=== PATIENT | male | born 1995 | race African-American/Black ===

== ENCOUNTER 2022-01-29 15:20 | Emergency (ER) | payer OTHER ==
--- NOTE | 2022-01-29 17:04 | ED Physician Documentation ---
History of Present Illness - Stated complaint Stated Complaint: MALE - Chief complaint Chief Complaint: UTI - History obtained from History obtained from: Patient - Additonal information Additional information: This is a generally healthy 26-year-old male who presents due to concerns that may have a sexually transmitted infection. The has urinary tract infection symptoms and thus he wants to be tested for sexually transmitted infection. The patient has no symptoms and denies any concerning contact. Review of Systems Ten Systems: 10 systems reviewed and negative (Except as noted in HPI.) PD PAST MEDICAL HISTORY - Past Medical History Past Medical History: No - Present Medications Home Medications: Ambulatory Orders Medication Instructions Recorded Confirmed No Known Home Medications 01/29/22 01/29/22 - Allergies Allergies/Adverse Reactions: Allergies Allergy/AdvReac Type Severity Reaction Status Date / Time No Known Drug Allergies Allergy Verified 01/29/22 15:32 PD ED PE NORMAL - Vitals Vital signs reviewed: Yes - General General: Alert and oriented X 3, No acute distress, Well developed/nourished - Abdomen Abdomen: Normal bowel sounds, Non tender, Non distended - Back Back: No CVA TTP - Derm Derm: Normal color, Warm and dry, No rash - Neuro Neuro: Alert and oriented X 3 Eye Opening: Spontaneous Motor: Obeys Commands Verbal: Oriented GCS Score: 15 Results - Vitals Vitals: Vital Signs - 24 hr 01/29/22 01/29/22 15:29 17:11 Temperature 37.3 C 36.6 C Heart Rate 78 70 Respiratory 14 14 Rate Blood Pressure 133/76 H 122/73 O2 Saturation 99 100 Oxygen O2 Source Room air PD MEDICAL DECISION MAKING - ED course Complexity details: d/w patient ED course: This is an asymptomatic 26-year-old male who presents with partner due to concerns for possible STI exposure. Patient's partner has UTI symptoms but they both would like to be tested for gonorrhea, diarrhea and trichomoniasis. Patient is asymptomatic. We will therefore wait for the test results and treat then if indicated. Patient was advised to follow-up via phone if he does not hear any test results in the next 3 to 4 days, recommended abstinence until test results obtained. Departure - Departure Disposition: 01 Home, Self Care Clinical Impression: Routine screening for STI (sexually transmitted infection) Condition: Good Instructions: STDs Comments: We have obtained a screening for gonorrhea, including a and trichomoniasis but this will not result today. Please check the patient portal or call for results. As you do not have any symptoms and no certain exposure, no additional treatment is indicated at this time. Discharge Date/Time: 01/29/22 17:35
[2022-01-29 17:13] VITALS: BP 122/73
[2022-01-29 20:37] LABS: NEISSERIA GONORRHOEAE DNA NEGATIVE (NEGATIVE)
[2022-01-29 20:38] LABS: CHLAMYDIA TRACHOMATIS DNA POSITIVE (NEGATIVE)
== END 2022-01-29 17:35 | disposition home or self-care (01) ==
LOC: ED 15:20
DX: Z11.3 Encounter for screening for infections with a predominantly sexual mode of transmission (principal); A74.9 Chlamydial infection, unspecified
CPT/HCPCS: 87491; 87591; 87661; 99281; 99283